=== PATIENT | male | born 1980 | race Caucasian/White ===

== ENCOUNTER → 2023-09-09 12:43 | Outpatient (REF) | payer OTHER, SELFPAY | LOC: HWRAD 12:43 | PROVIDERS: ATTENDING PHYSICIAN Family Medicine | DX: M67.40 Ganglion, unspecified site (principal) | CPT/HCPCS: 76882 ==

== ENCOUNTER → 2023-11-29 11:52 | Outpatient (REF) | payer OTHER, SELFPAY ==
[2023-11-29 12:53] LABS: % Basophils 0.9 % (0-2); % Eosinophils 2.4 % (0-6); % Immature Granulocytes 0.3 % (0-0.5); % Lymphocytes 42.3 % (20.5-51.1); % Monocytes 11.4 % (1.7-9.3); % Neutrophils 42.7 % (42.2-75.2); Absolute Basophils 0.1 10^3/uL (0-0.2); Absolute Eosinophils 0.2 10^3/uL (0-0.7); Absolute Lymphocytes 3.8 10^3/uL (1.2-3.4); Absolute Neutrophils 3.9 10^3/uL (1.4-6.5); Hematocrit 46.8 % (39.0-52.0); Hemoglobin 15.7 g/dL (13.0-18.0); Mean Corp Hgb Conc. 33.5 g/dL (33.0-37.0); Mean Corpuscular Volume 89.3 fL (80.0-94.0); Mean Platelet Volume 8.4 fL (7.4-10.4); Nucleated Red Blood Cells % 0 % (-); Platelet Count 566 10^3/uL (130-400); Red Blood Cell Count 5.24 10^6/uL (4.70-6.10); Red Cell Dist. Width 14.6 % (11.5-14.5); White Blood Cell Count 9.1 10^3/uL (4.8-10.8)
[2023-11-29 14:00] LABS: ALT (SGPT) 46 U/L (0-50); AST (SGOT) 31 U/L (17-59); Albumin 4.7 g/dl (3.5-5.0); Alkaline Phosphatase 53 U/L (38-126); Blood Urea Nitrogen 17 mg/dl (9-20); Calcium 10.6 mg/dl (8.4-10.2); Carbon Dioxide 26 mmol/L (22-30); Chloride 100 mmol/L (98-107); Glucose 82 mg/dl (70-99); Potassium 4.9 mmol/L (3.5-5.1); Sodium 134 mmol/L (135-145); Total Bilirubin 0.5 mg/dl (0.2-1.3); Total Protein 7.8 g/dl (6.3-8.2); eGFR > 60.00
== END ==
LOC: RCS 11:52
PROVIDERS: ATTENDING PHYSICIAN Surgery Plastic and Reconstructive Surgery; FAMILY PHYSICIAN Family Medicine
DX: Z01.818 Encounter for other preprocedural examination (principal)
CPT/HCPCS: 36415; 80053; 85025; 93005

== ENCOUNTER → 2023-12-27 09:05 | Outpatient (REF) | payer OTHER, SELFPAY | LOC: HWRAD 09:05 | PROVIDERS: ATTENDING PHYSICIAN Surgery; FAMILY PHYSICIAN Family Medicine | DX: K43.2 Incisional hernia without obstruction or gangrene (principal) | CPT/HCPCS: 74177; Q9967 ==

== ENCOUNTER 2024-04-01 06:08 | Day surgery (SDC) | payer OTHER, SELFPAY ==
[2024-04-01] VITALS (12 sets, daily range): BP systolic 115–143; BP diastolic 66–99; BMI 28.4
[2024-04-01] MEDS: TYLENOL 1000 MG PO (07:32)
[2024-04-01] MEDS: NORMOSOL-R/PLASMALYTE-A 1000 IV (07:33)
--- NOTE | 2024-04-01 07:45 | W.SUR.PREOP ---
Pre-Operative Surgical Note
-
I have examined this patient prior to the performance of the scheduled procedure.
The patient's condition is unchanged from the time of the current History and
Physical and the patient is able to undergo the scheduled procedure.
--- NOTE | 2024-04-01 10:47 | W.IMMPOSTOP ---
Surgical Immed Post Op Note
-
Primary Surgeon: RADHA Sterling MD
Assisting Surgeon:
Pre-op Diagnosis: Muscle atrophy
Post-op Diagnosis: Same
Procedure Performed: Fat grafting to right calf, donor site trunk
Anesthesia Type: General
Specimen / Cultures: None
Estimated Blood Loss: 30 cc
Complications: None
Operative Findings: As expected
--- NOTE | 2024-04-01 10:47 | OR.RPT ---
Operative Report
Operative Report
Date of surgery: 04/01/2024
Surgeon: RADHA Sterling MD
Preoperative diagnosis: Muscle atrophy, nerve disorder
Postoperative diagnosis: Same
Procedure:
1. Fat grafting to the right calf, 130 cc, donor site trunk
Complications: None
Anesthesia: General
EBL: 30 cc
Indications for procedure: Patient is a 43-year-old male with a longstanding history of lumbosacral neuropathy that led to muscle atrophy of the medial gastrocnemius. He presented for discussion of reconstructive options to achieve relative
symmetry due to longstanding atrophy. Discussion was had about implants versus fat grafting. Decision was made to proceed with fat grafting. Of note he had a history of prior abdominal surgeries and current ventral hernia. As such general
surgery was contacted and arrangements were made for hernia repair. Donor site was discussed with fat grafting this would be of the lateral chest wall and bilateral flanks. The anterior abdomen would not be utilized due to the known hernia. Fat
graft within be processed and injected into the right medial calf. Risk including DVT PE, bleeding, bruising, fat necrosis, resorption, infection were reviewed at length. Understood these risk desired to proceed
Procedure in detail: Patient was identified the preoperative area and the surgical site was confirmed to the right calf bilateral flanks and bilateral chest wall. All questions were answered consents were confirmed. Patient was taken back to the
operating room placed supine on table. Anesthesia was induced the patient was prepped and draped in usual sterile fashion using ChloraPrep. Timeout for patient safety was performed was confirmed that preoperative antibiotics administered.
Procedure began with the series of vocals with a 15 blade at the bilateral axillas and lateral flanks. Tumescent solution consisting of 1% lidocaine 50 cc, 1 amp of epi, and 1 L saline was distributed evenly over the donor sites. Tumescent
solution was injected in an appropriate amount of time was waited. SAF E protocol for liposuction and aspiration was then performed. The areas were first off suction, lipo aspiration was then performed, then fat equilibration was
performed prior to closing the sites with 5-0 fast. The fat was then processed using the pure graft system after rinsing and 1 L of lactated Ringer's. A total of approximately 400 cc of Lipo aspirate was obtained and this was processed into
approximately 130 cc of fat for injection into the right calf. 11 blade was used to make access sites for the cannula around the area of fat atrophy in the right medial calf. Greene cannulas then used to inject under 30 cc of fat in the deep and
superficial subcutaneous planes. This achieved a much better contour and relative symmetry from the right to left. All pedicles were closed with 5-0 fast. Patient tolerated procedure well was performed out complication all counts were correct.
Dr. Minor took over to perform the hernia repair at the conclusion of my portion of the procedure.
[2024-04-01] MEDS: ROXICODONE 5 MG PO (14:26)
--- NOTE | 2024-04-01 16:42 | SUR.PHASEI ---
[facility] late addendum -patient in [facility] post op fat graft to right calf and ventral hernia repair. History of sleep apnea, after extended stay in [facility] - sats 90- 99% - patient able to maintain sats without nursing intervention. vss, minimal pain in
abdomen, no pain in right leg or axilla area. At 1342 noted hematoma left upper robotic incision - approx 2.5 in in diameter - raised - hard despite abd binder and ice to abd. Dr Minor advised - no change in orders. okay to discharge to [facility].
at 1410 - abd incisions reviewed with [facility] RN - hematoma actually smaller in size - discharge [facility]
== END 2024-04-01 15:15 | disposition home or self-care (01) ==
LOC: SDS 06:08
PROVIDERS: ATTENDING PHYSICIAN Surgery
DX: M62.561 Muscle wasting and atrophy, not elsewhere classified, right lower leg (principal); M51.06 Intervertebral disc disorders with myelopathy, lumbar region; G57.81 Other specified mononeuropathies of right lower limb; K43.2 Incisional hernia without obstruction or gangrene; K66.0 Peritoneal adhesions (postprocedural) (postinfection)
CPT/HCPCS: 49593; 15771; C1713; C1776

== ENCOUNTER → 2025-05-23 08:02 | Outpatient (REF) | payer OTHER, SELFPAY | LOC: MRI 08:02 | PROVIDERS: ATTENDING PHYSICIAN Internal Medicine; FAMILY PHYSICIAN Physician Assistant | DX: M54.59 Other low back pain (principal); M54.16 Radiculopathy, lumbar region; M51.362 Other intervertebral disc degeneration, lumbar region with discogenic back pain and lower extremity pain | CPT/HCPCS: 72148 ==